=== PATIENT | female | born 1950 | race Caucasian/White ===

== ENCOUNTER 2016-09-26 22:51 | Emergency (ER) | payer MEDICAID ==
[2016-09-26 23:32] LABS: % BASOPHILS 0.8 % (0.0-2.0); % EOSINOPHILS 2.3 % (0.0-5.0); % LYMPHOCYTES 25.3 % (20.0-50.0); % MONOCYTES 7.7 % (2.0-10.0); % NEUTROPHILS 63.9 % (40.0-80.0); HEMOGLOBIN 12.2 gm/dL (11.7-16.1); MEAN CELL VOLUME 86.5 fl (81-100); MEAN CORPUSCULAR HEMOGLOBIN 29.4 pg (27.0-31.0); MEAN PLATELET VOLUME 8.7 fl; NEUTROPHILE ABSOLUTE 4.7 Th/cmm (1.8-8.0); PLATELET COUNT 226 Th/cmm (150-400); RED BLOOD COUNT 4.16 Mil/cmm (3.80-5.20); RED CELL DISTRIBUTION WIDTH 13.7 % (11.5-20.0); WHITE BLOOD COUNT 7.5 Th/cmm (4.8-10.8)
[2016-09-26] MEDS ORDERED: Sodium Chloride 0.45% 1,000 ML IV ONE (23:37)
[2016-09-26] MEDS ORDERED: HYDROmorphone 1 mg/mL 1mL Syr IVP STA (23:38)
[2016-09-26 23:46] LABS: INR 0.98 (0.5-1.4); PROTHROMBIN TIME (TEST) 10.2 SECONDS (9.5-11.5)
[2016-09-26 23:47] LABS: ALB/GLOB RATIO 1.4 (1.0-1.8); ALKALINE PHOSPHATASE 73 U/L (34-104); ANION GAP 10.3 (7.0-16.0); BILIRUBIN,TOTAL 0.3 mg/dL (0.3-1.0); BUN - UREA NITROGEN 23 mg/dL (7-25); BUN/CREATININE RATIO 32.9; CALCIUM SERUM 9.5 mg/dL (8.6-10.3); CARBON DIOXIDE 23.4 mEq/L (21.0-31.0); CHLORIDE 106 mEq/L (98-107); CHOLESTEROL 141 mg/dL (<200); CREATININE - SERUM 0.7 mg/dL (0.6-1.2); GLUCOSE 117 mg/dL (70-105); POTASSIUM SERUM 3.7 mEq/L (3.5-5.1); SGOT 19 U/L (13-39); SGPT/ALT 10 U/L (7-52); SODIUM SERUM 136 mEq/L (136-145); TRIGLYCERIDES 103 mg/dL (<150)
--- NOTE | 2016-09-26 23:50 | ED Physician Chart ---
Chief Complaint/HPI - Patient Information Date Seen:: 09/26/16 Time Seen:: 23:00 Chief Complaint:: ABDOMINAL PAIN History of Present Illness:: THIS IS A 65 YEAR OLD FEMALE WITH RECURRENT GI PROBLEMS AND PAIN. SHE HAS BEEN SEEN ABOUT 8 TIMES FOR THE SAME PROBLEM. EARLIER TODAY SHE SUDDENLY STARTED TO HAVE GENERALIZED ABDOMINAL PAIN WITHOUT VOMITING OR FEVER BUT HAS DIARRHEA. SHE HAS SYMPTOMS OF CROHN'S DISEASE BUT HAS NOT SEEN ANY BLOOD IN HER STOOLS. IN THE PAST SHE HAS HAD CT SCANS AND GI WORKUPS. SHE MICHELE DIABETES BUT HER MOTHER HAS IT. Allergies:: Allergies Allergy/AdvReac Type Severity Reaction Status Date / Time codeine Allergy Verified 10/07/15 08:23 Vitals:: Vital Signs - 8 hr 09/26/16 22:51 Temp 98.1 F HR 59 RR 18 BP 145/74 O2 Sat % 98 Historian:: Patient, Medical Records Review:: Nurse's Note Reviewed, Old Chart Reviewed Review of Systems - Review of Systems General/Constitutional: No fever, No chills, No weight loss, No weakness, No diaphoresis, No edema, No loss of appetite Skin: No skin lesions, No rash, No bruising Head: No headache, No light-headedness Eyes: No loss of vision, No pain, No diplopia ENT: No earache, No nasal drainage, No sore throat, No tinnitus Neck: No neck pain, No swelling, No thyromegaly, No stiffness, No mass noted Cardio Vascular: No chest pain, No palpitations, No PND, No orthopnea, No edema Pulmonary: No SOB, No cough, No sputum, No wheezing GI: No nausea, No vomiting, Diarrhea, Pain, No melena, No hematochezia, No constipation, No hematemesis G/U: No dysuria, No frequency, No hematuria Musculoskeletal: No bone or joint pain, No back pain, No muscle pain Endocrine: No polyuria, No polydipsia Psychiatric: No prior psych history, No depression, No anxiety, No suicidal ideation Hematopoietic: No bruising, No lymphadenopathy Allergic/Immuno: No urticaria, No angioedema Neurological: No syncope, No focal symptoms, No weakness, No paresthesia, No headache, No seizure, No dizziness, No confusion, No vertigo Past Medical History - Past Medical History Obtainable: Yes Past Medical History: Thyroid disorder, Other (CROHNS) Family History: Diabetes Melitus (MOTHER) Social History: Non Smoker, No Alcohol, No Drug Use Surgical History: None Psychiatricy History: None Medication: Reviewed Family Medical History - Family Member Mother History Unknown: Yes Ethnicity: Living Status: Hx Family Cancer: No Hx Family Coronary Artery Disease: No Hx Family Congestive Heart Failure: No Hx Family Hypertension: No Hx Family Stroke: No Hx Family Diabetes: Yes Hx Family Seizures: No Hx Family Dementia: No Hx Family AIDS: No Hx Family HIV: No Hx Family COPD: No Hx Family Hepatitis: No Hx Family Psychiatric Problems: No Hx Family Tuberculosis: No Father History Unknown: Yes Ethnicity: Living Status: Hx Family Cancer: Yes (STOMACH) Hx Family Coronary Artery Disease: No Hx Family Congestive Heart Failure: No Hx Family Hypertension: No Hx Family Stroke: No Hx Family Diabetes: No Hx Family Seizures: No Hx Family Dementia: No Hx Family AIDS: No Hx Family HIV: No Hx Family COPD: No Hx Family Hepatitis: No Hx Family Psychiatric Problems: No Hx Family Tuberculosis: No Physical Exam - Physical Examination General/Constitutional: Awake, Well-developed, well-nourished, Alert, No distress, GCS 15, Non-toxic appearing, Ambulatory Head: Atraumatic Eyes: Lids, conjuctiva normal, PERRL, EOMI Skin: Nl inspection, No rash, No skin lesions, No ecchymosis, Well hydrated, No lymphadenopathy ENMT: External ears, nose nl, Nasal exam nl, Lips, teeth, gums nl Neck: Nontender, Full ROM w/o pain, No JVD, No nuchal rigidity, No bruit, No mass, No stridor Respiratory: Nl effort/Exclusion, Clear to Auscultation, No Wheeze/Rhonchi/Rales Cardio Vascular: RRR, No murmur, gallop, rubs, NL S1 S2 GI: No organomegaly, No hernia, Normal BS's, Nondistended, No mass/bruits, No McBurney tenderness Other GI comments:: THERE IS GENERALIZE TENDERNESS OVER THE ENTIRE ABDOMEN WITH REBOUND : No CVA tenderness Extremities: No tenderness or effusion, Full ROM, normal strength in all extremities, No edema, Normal digits & nails Neuro/Psych: Alert/oriented, DTR's symmetric, Normal sensory exam, Normal motor strength, Judgement/insight normal, Mood normal, Normal gait, No focal deficits Misc: normal gait, Normal back, No paraspinal tenderness Labs/Radiology/EKG Results - Lab Results Results: Laboratory Tests 09/26/16 23:16 WBC 7.5 RBC 4.16 Hgb 12.2 Hct 36.0 D MCV 86.5 MCH 29.4 MCHC Differential 34.0 RDW 13.7 Plt Count 226 MPV 8.7 Neutrophils % 63.9 Lymphocytes % 25.3 Monocytes % 7.7 Eosinophils % 2.3 Basophils % 0.8 Assessment - Assessment General Assessment: THE PATIENT REFUSED FOR IMAGING TEST BUT NEEDS MED FOR PAIN AND HYDRATION. ED Septic Shock - . Is Septic Shock (SBP<90, OR Lactate>4 mmol\L) present?: No - <6hrs of presentation: Vital Signs: Vital Signs - 8 hr 09/26/16 22:51 Temp 98.1 F HR 59 RR 18 BP 145/74 O2 Sat % 98 Reassessment (Disposition) - Reassessment Reassessment Condition:: Improved - Diagnosis Diagnosis:: COLITIS - Aftercare/Follow up Instructions Aftercare/Follow-Up Instructions:: Counseled pt regarding lab results/diagnosis & need follow up, Refer to Discharge Instructions, Counseled pt & family regarding lab results/diagnosis & need follow up - Patient Disposition Discharge/Transfer:: Home Condition at Disposition:: Improved ED Discharge Plan - Patient Disposition Admit/Discharge/Transfer: PT DISCHARGED HOME Condition at Disposition: Improved Additional Instructions: CLEAR LIQUID DIET FOR 24 HOURS PLEASE TAKE MEDS AND DESCRIBED RETURN TO ER IF SYMPTOMS RETURN OR IF VOMITING STARTS.
[2016-09-26] MEDS ORDERED: HYDROmorphone 1 mg/mL 1mL Syr ONE (23:51)
== END 2016-09-27 00:45 | disposition home or self-care (01) ==
LOC: ER 22:51
DX: K52.9 Noninfective gastroenteritis and colitis, unspecified (principal); E07.9 Disorder of thyroid, unspecified; Z88.5 Allergy status to narcotic agent
CPT/HCPCS: 99284; 96374; 96375; 84484; 36415; 84443; 86592; 85025; 85610; 85730; 83036; 80053; 80061; 87040 ×2; J2405; J2930; J1170; Z7502

== ENCOUNTER 2016-10-30 01:52 | Inpatient (IN) | payer MEDICAID ==
--- NOTE | 2016-10-30 02:08 | ED Physician Chart ---
Chief Complaint/HPI - Patient Information Date Seen:: 10/30/16 Time Seen:: 14:00 Chief Complaint:: Abdominal Pain History of Present Illness:: onset x one day of intermittent, crampy abd. pain, N/V/D; no A/C, H/As, Neck Pain C/P, fever, chills, or urinary s/s Allergies:: Allergies Allergy/AdvReac Type Severity Reaction Status Date / Time codeine Allergy Verified 10/07/15 08:23 Historian:: Patient Review:: Nurse's Note Reviewed Review of Systems - Review of Systems General/Constitutional: No fever, No chills, No weight loss, No weakness, No diaphoresis, No edema, No loss of appetite Skin: No skin lesions, No rash, No bruising Head: No headache, No light-headedness Eyes: No loss of vision, No pain, No diplopia ENT: No earache, No nasal drainage, No sore throat, No tinnitus Neck: No neck pain, No swelling, No thyromegaly, No stiffness, No mass noted Cardio Vascular: No chest pain, No palpitations, No PND, No orthopnea, No edema Pulmonary: No SOB, No cough, No sputum, No wheezing GI: Nausea, Vomiting, Diarrhea, Pain, No melena, No hematochezia, No constipation, No hematemesis G/U: No dysuria, No frequency, No hematuria [employer]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, No abnormal vaginal bleed, No contraction Musculoskeletal: No bone or joint pain, No back pain, No muscle pain Endocrine: No polyuria, No polydipsia Psychiatric: No prior psych history, No depression, No anxiety, No suicidal ideation, No homicidal ideation, No auditory hallucination, No visual hallucination Hematopoietic: No bruising, No lymphadenopathy Allergic/Immuno: No urticaria, No angioedema Neurological: No syncope, No focal symptoms, No weakness, No paresthesia, No headache, No seizure, No dizziness, No confusion, No vertigo Past Medical History - Past Medical History Obtainable: Yes Past Medical History: Other (Crohn's Disease) Family History: HTN Social History: Non Smoker, No Alcohol, No Drug Use Surgical History: None Psychiatricy History: None Medication: Reviewed Family Medical History - Family Member Mother History Unknown: Yes Ethnicity: Living Status: Hx Family Cancer: No Hx Family Coronary Artery Disease: No Hx Family Congestive Heart Failure: No Hx Family Hypertension: No Hx Family Stroke: No Hx Family Diabetes: Yes Hx Family Seizures: No Hx Family Dementia: No Hx Family AIDS: No Hx Family HIV: No Hx Family COPD: No Hx Family Hepatitis: No Hx Family Psychiatric Problems: No Hx Family Tuberculosis: No Father History Unknown: Yes Ethnicity: Living Status: Hx Family Cancer: Yes (STOMACH) Hx Family Coronary Artery Disease: No Hx Family Congestive Heart Failure: No Hx Family Hypertension: No Hx Family Stroke: No Hx Family Diabetes: No Hx Family Seizures: No Hx Family Dementia: No Hx Family AIDS: No Hx Family HIV: No Hx Family COPD: No Hx Family Hepatitis: No Hx Family Psychiatric Problems: No Hx Family Tuberculosis: No Son Ethnicity: Living Status: Still Living Physical Exam - Physical Examination General/Constitutional: Awake, Well-developed, well-nourished, Alert, No distress, GCS 15, Non-toxic appearing, Ambulatory Head: Atraumatic Eyes: Lids, conjuctiva normal, PERRL, EOMI Skin: Nl inspection, No rash, No skin lesions, No ecchymosis, Well hydrated, No lymphadenopathy ENMT: External ears, nose nl, Nasal exam nl, Lips, teeth, gums nl Neck: Nontender, Full ROM w/o pain, No JVD, No nuchal rigidity, No bruit, No mass, No stridor Respiratory: Nl effort/Exclusion, Clear to Auscultation, No Wheeze/Rhonchi/Rales Cardio Vascular: RRR, No murmur, gallop, rubs, NL S1 S2 GI: No tenderness/rebounding/guarding, No organomegaly, No hernia, Normal BS's, Nondistended, No mass/bruits, No McBurney tenderness : No CVA tenderness Extremities: No tenderness or effusion, Full ROM, normal strength in all extremities, No edema, Normal digits & nails Neuro/Psych: Alert/oriented, DTR's symmetric, Normal sensory exam, Normal motor strength, Judgement/insight normal, Mood normal, Normal gait, No focal deficits Misc: normal gait, Normal back, No paraspinal tenderness Labs/Radiology/EKG Results - Lab Results Results: unremarkable - Radiology Results Results: NAD - EKG Interpretations Rate & Rhythm: NSR Comments:: non-specific st-t changes ED Septic Shock - . Is Septic Shock (SBP<90, OR Lactate>4 mmol\L) present?: No Reassessment (Disposition) - Reassessment Reassessment Condition:: Improved - Diagnosis Diagnosis:: Crohn's Disease; Vomiting/Diarrhea; AGE; Gastroenteritis; Abdominal Pain; Dehydration; Intractable Pain - Aftercare/Follow up Instructions Aftercare/Follow-Up Instructions:: Counseled pt regarding lab results/diagnosis & need follow up, Counseled pt & family regarding lab results/diagnosis & need follow up - Patient Disposition Discharge/Transfer:: Acute Care w/in this hosp Time Called:: 399 Time Responded:: 04:00 Admitted to:: Med/Surg Spoke to:: Dr. Penaloza Admitting Medical Physician:: Dr. Penaloza Condition at Disposition:: Stable, Improved
[2016-10-30] MEDS ORDERED: Morphine Sulfate 2 mg/mL 1mL Syr IVP ONE (02:09)
[2016-10-30] MEDS ORDERED: Sodium Chloride 0.9% 1,000 ML IV ONE (02:09)
[2016-10-30] MEDS ORDERED: Morphine Sulfate 2 mg/mL 1mL Syr ONE (02:14)
[2016-10-30 02:36] LABS: % BASOPHILS 1.1 % (0.0-2.0); % EOSINOPHILS 1.3 % (0.0-5.0); % LYMPHOCYTES 13.8 % (20.0-50.0); % MONOCYTES 4.5 % (2.0-10.0); % NEUTROPHILS 79.3 % (40.0-80.0); HEMATOCRIT 38.6 % (35.0-45.0); HEMOGLOBIN 13.2 gm/dL (11.7-16.1); MEAN CORPUSCULAR HEMOGLOBIN 28.8 pg (27.0-31.0); MEAN CORPUSCULAR HGB CONC 34.3 pg (28.0-36.0); MEAN PLATELET VOLUME 9.4 fl; NEUTROPHILE ABSOLUTE 8.9 Th/cmm (1.8-8.0); PLATELET COUNT 180 Th/cmm (150-400); RED CELL DISTRIBUTION WIDTH 14.7 % (11.5-20.0)
[2016-10-30 02:38] LABS: URINE BILIRUBIN NEGATIVE (NEGATIVE); URINE BLOOD NEGATIVE (NEGATIVE); URINE GLUCOSE (UA) NEGATIVE (NEGATIVE); URINE KETONE NEGATIVE (NEGATIVE); URINE PH 5.5 (4.6 - 8.0); URINE PROTEIN 30 mg/dL (NEGATIVE)
[2016-10-30 02:52] LABS: ALB/GLOB RATIO 1.5 (1.0-1.8); ALKALINE PHOSPHATASE 80 U/L (34-104); ANION GAP 11.4 (7.0-16.0); BILIRUBIN,TOTAL 0.4 mg/dL (0.3-1.0); BUN - UREA NITROGEN 19 mg/dL (7-25); BUN/CREATININE RATIO 23.8; CALCIUM SERUM 9.6 mg/dL (8.6-10.3); CARBON DIOXIDE 22.4 mEq/L (21.0-31.0); CHLORIDE 106 mEq/L (98-107); CHOLESTEROL 150 mg/dL (<200); CREATININE - SERUM 0.8 mg/dL (0.6-1.2); GLUCOSE 160 mg/dL (70-105); POTASSIUM SERUM 3.8 mEq/L (3.5-5.1); SGOT 21 U/L (13-39); SGPT/ALT 10 U/L (7-52); SODIUM SERUM 136 mEq/L (136-145); TRIGLYCERIDES 114 mg/dL (<150)
[2016-10-30 02:53] LABS: AMYLASE SERUM 44 U/L (29-103); LIPASE 40 U/L (11-82)
[2016-10-30 02:54] LABS: TROP I 0.01 ng/mL (0.01-0.05)
[2016-10-30 02:58] LABS: WHITE BLOOD COUNT 11.1 Th/cmm (4.8-10.8)
[2016-10-30 03:13] LABS: URINE COLOR YELLOW
[2016-10-30 03:14] LABS: URINE BACTERIA NONE SEEN /hpf (NONE SEEN); URINE EPITHELIAL CELLS NONE SEEN /lpf (FEW); URINE RBC NONE SEEN /hpf (0-5); URINE WBC NONE SEEN /hpf (0-5)
[2016-10-30 03:16] LABS: BNP 23.8 pg/mL (5.0-100.0)
[2016-10-30 03:40] LABS: INR 0.91 (0.5-1.4); PROTHROMBIN TIME (TEST) 9.5 SECONDS (9.5-11.5)
[2016-10-30] MEDS: Morphine Sulfate 2 mg/mL 1mL Syr IVP PRN ×2 (05:15→19:55)
[2016-10-30] MEDS: D5-0.45NS 1,000 ML IV SCH ×2 (05:18→17:23)
[2016-10-30 05:32] VITALS: BP 131/66
--- NOTE | 2016-10-30 08:10 | Diagnostic Imaging Report ---
CT scan abdomen and pelvis without intravenous contrast HISTORY: Pain Total DLP equals 418 CTDI equals 8.3 Axial sections were obtained from the xiphoid process down to the pubic symphysis. The exam of the liver demonstrates several well-circumscribed hypodense lesions. Density measurements consistent with cysts. The largest is situated within the left lobe and measures approximately 2.7 cm. The spleen appears normal. No abnormalities are seen in the region of the pancreas. No focal renal lesions no calculi. No hydronephrosis. There are multiple loops of dilated small bowel. No colonic dilatation. The findings suggest changes of a distal small bowel obstruction. Clinical relation is needed. The appendix is not clearly visualized. The exam of the pelvis demonstrates preservation of normal fat planes. No abnormal soft tissue masses or abnormal fluid collections. There is spondylolisthesis of L5 on S1 with bilateral spondylolysis. IMPRESSION: 1. Dilated loops of small bowel suggesting a distal small bowel obstruction. Clinical correlation is needed. 2. Findings consistent with multiple hepatic cysts 3. Spondylolisthesis L5 on S1 associated with bilateral spondylolysis.
--- NOTE | 2016-10-30 11:11 | History & Physical ---
ADMIT DATE: 10/30/2016 PATIENT IDENTIFICATION: A 65-year-old female. CHIEF COMPLAINT: Abdominal pain. HISTORY SOURCE: Reviewing the chart, talking to the patient. HISTORY OF PRESENT ILLNESS: A 65-year-old [place] female, speaks Welsh only, has been going in and out of the Emergency Room for abdominal pain. She states that her daughter is and has a Crohn's colitis. She did have a colonoscopy done by her marine drafter and noted to have diverticulosis. No evidence of colitis as per patient's account. She does take Synthroid for her hypothyroidism. The patient states that yesterday around 3:00, she ate chicken and tortilla and after that 5:00, she started her pain, which she describes initially upper part and subsequently to the lower part of the abdomen. The pain was associated with nausea, vomiting and diarrhea. The patient brought herself to the Emergency Room. The patient was seen by Emergency Room MD. I was asked by the charge nurse to admit the patient, while Emergency Room doctor was unable to talk to me. The patient did receive some IV morphine and Toradol. The patient was admitted by me since the patient had multiple visits in the Emergency Room. The patient is currently pain free. PAST MEDICAL HISTORY: Remarkable for: 1. Diverticulosis. 2. Hypothyroidism. 3. DJD. MEDICATIONS AT HOME: She is taking Lasix, potassium along with Synthroid and multivitamin. ALLERGIES: THE PATIENT IS ALLERGIC TO CODEINE, but she takes morphine without any problem. SOCIAL HISTORY: She lives in [place]. No smoking, alcohol or drug use. FAMILY MEDICAL HISTORY: Remarkable for hypertension. REVIEW OF SYSTEMS: The patient currently denies any headache, blurred vision, double vision, dysphagia, odynophagia, runny nose, stuffy nose, fever, chills, cough, chest pain, shortness of breath, palpitation, dizziness, nausea, vomiting, diarrhea, dysuria, hematuria, hematochezia, or melena. No history of any seizure or syncopal episode. PHYSICAL EXAMINATION: GENERAL: The patient is alert, awake, oriented, lying in the bed without any acute distress. VITAL SIGNS: Temperature 97.5, pulse 56, respiratory rate 18, blood pressure 120/62. SKIN: Warm to touch. HEENT: Normocephalic, atraumatic. Extraocular muscles are intact. Tongue was pink and coated. NECK: Supple, no JVD, no hepatojugular reflex. No lymphadenopathy, thyromegaly or carotid bruit. HEART: Both heart sounds are regular. No S3, no S4, no murmur. CHEST: Lung equal in expansion, no wheezing, no crackles. ABDOMEN: Soft. Left lower quadrant tenderness noted. Bowel sounds are present. No palpable mass. EXTREMITIES: No edema, no cyanosis or clubbing. No calf tenderness noted. NEUROLOGIC: Nonfocal. AVAILABLE DIAGNOSTIC DATA: Performed in the Emergency Room has been reviewed which is remarkable for white count of 11.5, random blood sugar 160. CT scan of the abdomen and pelvis remarkable for dilated loop of small bowel, suggesting distal small-bowel obstruction, clinical correlation recommended also noted. L5-S1 bilateral spondylosis noted. CLINICAL IMPRESSION: 1. Acute onset of abdominal pain associated with nausea, vomiting, diarrhea. The patient's family member, daughter had similar symptoms, suspect the patient might have acute gastroenteritis. 2. Abnormal CT scan of the abdomen and pelvis, questionable small-bowel obstruction. The patient has bowel sounds present. Clinically does not look small-bowel obstruction. 3. The patient had diverticulosis, had left lower quadrant tenderness, possibilities of diverticulitis is there in the presence of diverticulosis. 4. Hypothyroidism. 5. Possibilities of gastritis as well, considering the patient has been taking potassium supplement for a while. 6. Degenerative joint disease. PLAN: 1. Admit this patient to Med/Surg floor. 2. NPO. 3. IV fluid. 4. IV antibiotic. 5. Symptoms management. 6. Pepcid. 7. Appropriate home medicine reconciliation. 8. GI consult. 9. Follow lab. 10. Follow quantitative consultant's recommendations. 11. Care plan reviewed and discussed with staff. JOB# [id number]
--- NOTE | 2016-10-30 22:34 | Consultation ---
DATE OF CONSULTATION: 10/30/2016 CONSULTING PHYSICIAN: Dr. Penaloza. REASON FOR CONSULTATION: Small-bowel obstruction, abdominal pain. HISTORY OF PRESENT ILLNESS: The patient is a 65-year-old female with past medical history significant for repeated small-bowel obstruction, who is presenting now with 1 day of bloating, abdominal pain and nausea and vomiting. The patient reports that she has been admitted to several hospitals at least 14 times over the past two years with similar symptoms and been told that she has bowel obstruction. She is adamant that she has never been told she has Crohn's disease, although she reports she has been told that she might be prone to Crohn's disease as she has a daughter with Crohn's disease. She notes that she has seen specialist in Gastroenterology previously as an outpatient and a colonoscopy has been performed in the past year, but reports that she was told things looked normal. She was on some unknown type of medication that she says was for her bowels, but this was stopped after several months back by her specialist. She does not know what the name of this was at this time. The patient reports that her symptoms of bloating, nausea, and vomiting and abdominal pain are elicited by eating particularly fibrous foods such as rice or corn or bread. She denies seeing any blood in her stool and notes that she sometimes often will have some diarrhea. She denies any blood in her emesis. She denies any skin or eye changes or changes in concentration or tremor. PAST MEDICAL HISTORY: Noncontributory, although the patient reports being told by a specialist she is prone to having Crohn's disease. PAST SURGICAL HISTORY: The patient denies any previous surgeries. FAMILY HISTORY: The patient's daughter has Crohn's disease. No colon or stomach cancers in the family. SOCIAL HISTORY: The patient denies any tobacco products or alcohol use. ALLERGIES: ALLERGIC TO CODEINE. REVIEW OF SYSTEMS: A 12-point review of systems was performed and is negative other than the pertinent positives are mentioned in the history of present illness. HOME MEDICATIONS: The patient reports only taking vitamin supplements. CURRENT MEDICATIONS: Include Synthroid, morphine as needed, Pepcid, Zofran and Zosyn. PHYSICAL EXAMINATION: VITAL SIGNS: Blood pressure 131/66, pulse of 56, temperature 97.5, respiratory rate 19, satting 99% saturation on room air. GENERAL: The patient is lying flat in bed, alert and oriented x 3, in some moderate distress. HEENT: There is no scleral icterus. Pupils are equal and reactive to light. Extraocular muscles are intact. Moist mucous membranes. NECK: No JVD, no thyromegaly, no lymphadenopathy. Supple. CHEST: Clear to auscultation bilaterally. No wheezes. CARDIOVASCULAR: S1, S2 are present, regular rate and rhythm. ABDOMEN: Soft, although tender to palpation in all quadrants. No guarding or rebound. No distention at the moment. No fluid wave. EXTREMITIES: No edema. Positive pulses. Full range of motion. NEUROLOGIC: Nonfocal. SKIN: No jaundice, no rashes. LABORATORY DATA: White blood cell count 11.1, hemoglobin 13.2, platelet count 180. INR , BUN 19, creatinine 0.8, total bilirubin 0.4, AST 21, ALT 10, alkaline phosphatase 80. Troponin negative. Albumin 4.3. IMAGING: The patient had non-con abdomen and pelvis. Liver demonstrates several well circumscribed hypodense lesions with density consistent with cysts, largest of these is 2.7 cm. Spleen appears normal. The pancreas is normal. Multiple dilated loops of small bowel. No colonic dilation, findings suggest distal small-bowel obstruction. Appendix not clearly visualized. IMPRESSION: This is a 65-year-old female with apparently no past medical history, who is presenting with repeated small bowel obstructions; 1. Repeated small-bowel obstruction. 2. Nausea and vomiting. 3. Abdominal pain. 4. Family history of Crohn's disease. DISCUSSION: This presentation and this history are highly suspicious for inflammatory bowel disease, most likely Crohn's disease given the distal small bowel involvement. The patient does report having a colonoscopy, but this cannot be retrieved and the patient does not remember where this was, thus we will attempt to see if her obstruction has resolved enough to the point where we can do a colonoscopy here and examine her terminal ileum for confirmation of Crohn's disease. I will also get a CRP level and ESR level as well as labs necessary for anti-TNF agents if this becomes necessary. I suggest a surgical consultation given that the patient has had several bowel obstructions at this point and I would think that her terminal ileum is likely fibrotic and may not respond to immunotherapy. PLAN: 1. We will attempt to give the patient some clears today. If the patient is able to tolerate this. We will plan for colonoscopy tomorrow with bowel prep this evening in order to confirm the presence of Crohn's. 2. If Crohn's is confirmed by labs and colonoscopy, she would benefit from starting immunotherapy, likely steroids. 3. I would suggest surgical consultation as stated above. 4. Follow up ESR and CRP levels. I will continue to follow. Thank you for allowing me to participate in the care of this patient. Please call with any further questions. [facility]# [id number]
[2016-10-31] MEDS: D5-0.45NS 1,000 ML IV SCH ×3 (05:14→21:41)
[2016-10-31] MEDS: Levothyroxine 0.1 Mg Tab PO SCH (06:42)
[2016-10-31 07:08] LABS: % BASOPHILS 1.2 % (0.0-2.0); % EOSINOPHILS 5.2 % (0.0-5.0); % LYMPHOCYTES 38.7 % (20.0-50.0); % NEUTROPHILS 45.9 % (40.0-80.0); HEMOGLOBIN 11.9 gm/dL (11.7-16.1); MEAN CELL VOLUME 84.4 fl (81-100); MEAN CORPUSCULAR HEMOGLOBIN 29.5 pg (27.0-31.0); MEAN CORPUSCULAR HGB CONC 34.9 pg (28.0-36.0); MEAN PLATELET VOLUME 9.4 fl; RED BLOOD COUNT 4.02 Mil/cmm (3.80-5.20); RED CELL DISTRIBUTION WIDTH 15.3 % (11.5-20.0)
[2016-10-31 07:12] LABS: PLATELET COUNT 143 Th/cmm (150-400); WHITE BLOOD COUNT 4.4 Th/cmm (4.8-10.8)
[2016-10-31 07:27] LABS: INR 0.96 (0.5-1.4)
[2016-10-31 07:32] LABS: ALB/GLOB RATIO 1.5 (1.0-1.8); ALKALINE PHOSPHATASE 56 U/L (34-104); ANION GAP 5.5 (7.0-16.0); BILIRUBIN,TOTAL 0.6 mg/dL (0.3-1.0); BUN - UREA NITROGEN 8 mg/dL (7-25); BUN/CREATININE RATIO 13.3; CALCIUM SERUM 8.1 mg/dL (8.6-10.3); CARBON DIOXIDE 25.1 mEq/L (21.0-31.0); CHLORIDE 112 mEq/L (98-107); CREATININE - SERUM 0.6 mg/dL (0.6-1.2); GLUCOSE 93 mg/dL (70-105); POTASSIUM SERUM 3.6 mEq/L (3.5-5.1); SGOT 18 U/L (13-39); SGPT/ALT 11 U/L (7-52); SODIUM SERUM 139 mEq/L (136-145)
--- NOTE | 2016-10-31 08:04 | Diagnostic Imaging Report ---
CHEST X-RAY: AP view INDICATION: pain COMPARISON: None FINDINGS: Chronic lung changes are seen with no focal consolidation or effusions. Heart size is normal. Degenerative changes of the spine are noted. IMPRESSION: Chronic lung changes with no focal consolidation identified.
[2016-10-31 11:11] LABS: FOLIC ACID >20.0 ng/mL (>3.0)
[2016-10-31 13:12] LABS: HEP B CORE IGM Negative (Negative); HEP C ANTIBODY <0.1 s/co ratio (0.0-0.9)
--- NOTE | 2016-10-31 14:45 | GI Progress Note ---
Subjective - Review of Systems Service Date: 10/31/16 Subjective: Colonoscopy today shows normal colon and TI, biopsies taken. SBO clinically resolved. Objective - Results Result Diagrams: 10/31/16 06:40 10/31/16 06:40 Recent Labs: Laboratory Last Values WBC 4.4 Th/cmm (4.8-10.8) L D 10/31/16 06:40 RBC 4.02 Mil/cmm (3.80-5.20) 10/31/16 06:40 Hgb 11.9 gm/dL (11.7-16.1) 10/31/16 06:40 Hct 34.0 % (35.0-45.0) L D 10/31/16 06:40 MCV 84.4 fl (81-100) 10/31/16 06:40 MCH 29.5 pg (27.0-31.0) 10/31/16 06:40 MCHC Differential 34.9 pg (28.0-36.0) 10/31/16 06:40 RDW 15.3 % (11.5-20.0) 10/31/16 06:40 Plt Count 143 Th/cmm (150-400) L D 10/31/16 06:40 MPV 9.4 fl 10/31/16 06:40 Neutrophils % 45.9 % (40.0-80.0) 10/31/16 06:40 Lymphocytes % 38.7 % (20.0-50.0) 10/31/16 06:40 Monocytes % 9.0 % (2.0-10.0) 10/31/16 06:40 Eosinophils % 5.2 % (0.0-5.0) H 10/31/16 06:40 Basophils % 1.2 % (0.0-2.0) 10/31/16 06:40 ESR 22 mm/hr (0-30) 10/30/16 02:18 PT 10.0 SECONDS (9.5-11.5) 10/31/16 06:40 INR 0.96 (0.5-1.4) 10/31/16 06:40 Sodium 139 mEq/L (136-145) 10/31/16 06:40 Potassium 3.6 mEq/L (3.5-5.1) 10/31/16 06:40 Chloride 112 mEq/L (98-107) H 10/31/16 06:40 Carbon Dioxide 25.1 mEq/L (21.0-31.0) 10/31/16 06:40 Anion Gap 5.5 (7.0-16.0) L 10/31/16 06:40 BUN 8 mg/dL (7-25) 10/31/16 06:40 Creatinine 0.6 mg/dL (0.6-1.2) 10/31/16 06:40 Est GFR ( Amer) > 60.0 ml/min (>90) 10/31/16 06:40 Est GFR (Non-Af Amer) > 60.0 ml/min 10/31/16 06:40 BUN/Creatinine Ratio 13.3 10/31/16 06:40 Glucose 93 mg/dL (70-105) 10/31/16 06:40 Calcium 8.1 mg/dL (8.6-10.3) L 10/31/16 06:40 Iron 108 ug/dL (27-139) 10/30/16 20:10 TIBC 263 ug/dL (250-450) 10/30/16 20:10 Iron Saturation 41 % (15-55) 10/30/16 20:10 Unsaturated IBC 155 ug/dL (118-369) 10/30/16 20:10 Total Bilirubin 0.6 mg/dL (0.3-1.0) 10/31/16 06:40 AST 18 U/L (13-39) 10/31/16 06:40 ALT 11 U/L (7-52) 10/31/16 06:40 Alkaline Phosphatase 56 U/L (34-104) 10/31/16 06:40 Creatine Kinase 59 U/L (30-223) 10/30/16 02:18 Troponin I 0.01 ng/mL (0.01-0.05) 10/30/16 02:18 C-Reactive Protein < 0.2 mg/dL (0.0-0.9) 10/30/16 02:18 B-Natriuretic Peptide 23.8 pg/mL (5.0-100.0) 10/30/16 02:18 Total Protein 5.9 gm/dL (6.0-8.3) L 10/31/16 06:40 Albumin 3.5 gm/dL (3.7-5.3) L 10/31/16 06:40 Globulin 2.4 gm/dL 10/31/16 06:40 Albumin/Globulin Ratio 1.5 (1.0-1.8) 10/31/16 06:40 Triglycerides 114 mg/dL (<150) 10/30/16 02:18 Cholesterol 150 mg/dL (<200) 10/30/16 02:18 LDL Cholesterol Direct 93 mg/dL (75-193) 10/30/16 02:18 HDL Cholesterol 43 mg/dL (23-92) 10/30/16 02:18 Amylase 44 U/L (29-103) 10/30/16 02:18 Lipase 40 U/L (11-82) 10/30/16 02:18 Vitamin B12 199 pg/mL (211-946) L 10/30/16 20:10 Vitamin D 25-Hydroxy 35.9 ng/mL (30.0-100.0) 10/30/16 20:10 Folic Acid >20.0 ng/mL (>3.0) 10/30/16 20:10 TSH 1.30 uIU/ml (0.34-5.60) 10/30/16 02:18 Urine Source CLEAN C 10/30/16 02:00 Urine Color YELLOW 10/30/16 02:00 Urine Clarity CLEAR (CLEAR) 10/30/16 02:00 Urine pH 5.5 (4.6 - 8.0) 10/30/16 02:00 Ur Specific [place] >= 1.030 (1.005-1.030) 10/30/16 02:00 Urine Protein 30 mg/dL (NEGATIVE) H 10/30/16 02:00 Urine Glucose (UA) NEGATIVE mg/dL (NEGATIVE) 10/30/16 02:00 Urine Ketones NEGATIVE mg/dL (NEGATIVE) 10/30/16 02:00 Urine Blood NEGATIVE (NEGATIVE) 10/30/16 02:00 Urine Nitrate NEGATIVE (NEGATIVE) 10/30/16 02:00 Urine Bilirubin NEGATIVE (NEGATIVE) 10/30/16 02:00 Urine Urobilinogen 1.0 E.U./dL (0.2 - 1.0) 10/30/16 02:00 Ur Leukocyte Esterase NEGATIVE (NEGATIVE) 10/30/16 02:00 Urine RBC NONE SEEN /hpf (0-5) 10/30/16 02:00 Urine WBC NONE SEEN /hpf (0-5) 10/30/16 02:00 Ur Epithelial Cells NONE SEEN /lpf (FEW) 10/30/16 02:00 Urine Bacteria NONE SEEN /hpf (NONE SEEN) 10/30/16 02:00 Hepatitis A IgM Ab Negative (Negative) 10/30/16 20:10 Hep Bs Antigen Negative (Negative) 10/30/16 20:10 Hep B Core IgM Ab Negative (Negative) 10/30/16 20:10 Hepatitis C Antibody <0.1 s/co ratio (0.0-0.9) 10/30/16 20:10 - Physical Exam Vitals and I&O: Vital Signs Temp 97.6 F 10/31/16 11:00 Pulse 50 10/31/16 11:00 Resp 18 10/31/16 11:00 BP 124/61 10/31/16 11:00 Pulse Ox 99 10/31/16 11:00 Intake & Output 10/30/16 10/31/16 10/31/16 18:59 06:59 18:59 Intake Total 9946.058 1651.333 Balance 2789.603 1873.333 Weight (lbs) 61.235 kg Intake: Intake, IV Amount 6425.875 8399.333 D5-0.45NS 1,000 ml @ 100 1126.667 873.333 mls/hr IV .Q10H [facility] Rx#: [id number] Piperacillin Sodium/ 100 200 Tazobact 4.5 gm In Sodium Chloride 0.9% 100 ml @ 100 mls/hr IV Q8HR [facility] Rx #:[id number] Oral 4200 Other: # Voids 3 # Bowel Movements 7 Stool Characteristics Liquid Liquid Active Medications: Current Medications Famotidine (Pepcid) 20 mg IVP Q12H [facility] Stop: 12/29/16 09:29 Last Admin: 10/31/16 08:59 Dose: 20 mg Dextrose/Sodium Chloride (D5-0.45ns) 1,000 mls @ 100 mls/hr IV .Q10H [facility] Stop: 12/29/16 04:35 Last Admin: 10/31/16 05:14 Dose: 100 mls/hr Piperacillin Sod/Tazobactam (Sod 4.5 gm/ Sodium Chloride) 100 mls @ 100 mls/hr IV Q8HR [facility] Stop: 12/29/16 12:59 Last Infusion: 10/31/16 06:15 Dose: Infused Levothyroxine Sodium (Synthroid) 0.1 mg PO QDAC [facility] Stop: 12/30/16 07:29 Last Admin: 10/31/16 06:42 Dose: 0.1 mg Morphine Sulfate (Morphine) 2 mg IVP Q6H PRN PRN Reason: Pain (Severe) Stop: 12/29/16 04:44 Last Admin: 10/30/16 19:55 Dose: 2 mg Abdomen: Soft, Other (non tender, non distended, no rebound, no guard) Assessment/Plan - Problem List Patient Problems: All Active Problems Abdominal pain (Active) R10.9 Abdominal discomfort, generalized (Acute) R10.84 Sudden onset of severe abdominal pain (Acute) R10.9 - Assessment Assessment: # Recurrent SBO # Nausea/vomiting # Abd pain Given the family history of Crohns, and recurrent SBOs, IBD was high on the differential for this pt's recurrent SBOs. However, colonoscopy today shows normal colon and normal terminal ileum. Thus, this is not Crohns disease. Further, CRP and ESR negative as well. At this point, she may be suffering recurrent SBO related to adhesions or other anatomic pathology. Surgery consult is recommended to discuss resection of the offending area. Plan: - Surgery consultation given recurrent distal SBO, non IBD - clears diet, and can advance as tolerated Thank you for allowing me to participate in the care of this patient.
[2016-10-31] MEDS: Morphine Sulfate 2 mg/mL 1mL Syr IVP PRN ×2 (15:06→20:19)
--- NOTE | 2016-10-31 19:12 | Operative Report ---
DATE OF SURGERY: 10/31/2016 PROCEDURE PERFORMED: Colonoscopy with biopsy. ENDOSCOPIST: Grzegorz Pabon M.D. PREOPERATIVE DIAGNOSIS: Small-bowel obstruction. POSTOPERATIVE DIAGNOSIS: Small-bowel obstruction. INDICATION: This is a 65-year-old female, who has been admitted to the hospital several times over the past two years with small-bowel obstruction, thought to be in the distal ileum area. The patient has a daughter with Crohn's disease and there is suspicion that the patient may actually have Crohn's disease herself. She reports having a colonoscopy prior, but does not know the results and does not know if her ileum was examined, thus she is here for colonoscopy today to examine for any evidence of Crohn's. CONSENT: Informed consent was obtained from the patient. The patient was explained the risks and benefits of the procedure including but not limited to infection, bleeding, perforation, need for surgery, cardiopulmonary complications, missed pathology and . The patient indicated her understanding of these risks and wanted to proceed with the procedure and signed the consent form. ANESTHESIA: General anesthesia was used under the care of an anesthesiologist. PROCEDURE IN DETAIL: After the administration of general anesthesia, the patient was placed in the left lateral decubitus position. A well-lubricated scope was inserted into the rectum after a rectal exam was performed, which was normal. The scope was then advanced under direct visual guidance to the level of the cecum, the scope was also introduced into the terminal ileum and the mucosa was carefully examined. The scope was then slowly withdrawn, making sure to examine the entire colonic mucosal surface and upon exiting the anal canal the scope was retrieved. The patient tolerated this procedure well with no obvious signs of complications at the end of the procedure. FINDINGS: The Holly bowel prep score for this colonoscopy had right colon 3, mid colon 3, and left colon 3. The terminal ileum was able to be intubated and appeared endoscopically normal. The villi here appeared normal and healthy and there were no ulcerations, no erosions, no erythema about 20-25 cm of the terminal ileum was examined at the limit of the scope. Several biopsies were taken throughout this area. The colon also appeared normal without any evidence of erythema, granulation, ulceration, or mass. There were no internal hemorrhoids. No diverticulosis. Overall, normal exam. IMPRESSION AND RECOMMENDATIONS: There was no terminal ileum erythema or inflammation noticed on this exam. Thus, I do not suspect Crohn's disease at this time. The patient's small bowel obstructions may be due to adhesions or some other pathology, but does not appear to be from an inflammatory bowel disease given the endoscopic appearance of today's exam, I will continue to follow. Thank you for allowing me to participate in the care of this patient. Please call with any further questions. JOB# [id number]
[2016-11-01] MEDS: D5-0.45NS 1,000 ML IV SCH ×2 (06:09→15:35)
[2016-11-01] MEDS: Levothyroxine 0.1 Mg Tab PO SCH (06:36)
[2016-11-01] MEDS ORDERED: Diatrizoate Meglumine/Diatri 30 mL Sol PO ONE (10:20)
[2016-11-01] MEDS: Morphine Sulfate 2 mg/mL 1mL Syr IVP PRN ×2 (11:38→18:19)
[2016-11-01] MEDS ORDERED: Hydrocodone/APAP 5mg/325mg Tab PO PRN (13:56)
--- NOTE | 2016-11-01 18:14 | General Progress Note ---
Subjective - Review of Systems Subjective: Patient is seen and examined. Status post colonoscopy findings discussed with patient's family no clinical evidence of inflammatory bowel disease. Small bowel series is ordered which reported normal. Patient is still having intermittent abdominal pain. Patient's denies any fever or chills, cough, headache, diarrhea, seizure, syncope. Objective - Results Result Diagrams: 10/31/16 06:40 10/31/16 06:40 Recent Labs: Laboratory Last Values WBC 4.4 Th/cmm (4.8-10.8) L D 10/31/16 06:40 RBC 4.02 Mil/cmm (3.80-5.20) 10/31/16 06:40 Hgb 11.9 gm/dL (11.7-16.1) 10/31/16 06:40 Hct 34.0 % (35.0-45.0) L D 10/31/16 06:40 MCV 84.4 fl (81-100) 10/31/16 06:40 MCH 29.5 pg (27.0-31.0) 10/31/16 06:40 MCHC Differential 34.9 pg (28.0-36.0) 10/31/16 06:40 RDW 15.3 % (11.5-20.0) 10/31/16 06:40 Plt Count 143 Th/cmm (150-400) L D 10/31/16 06:40 MPV 9.4 fl 10/31/16 06:40 Neutrophils % 45.9 % (40.0-80.0) 10/31/16 06:40 Lymphocytes % 38.7 % (20.0-50.0) 10/31/16 06:40 Monocytes % 9.0 % (2.0-10.0) 10/31/16 06:40 Eosinophils % 5.2 % (0.0-5.0) H 10/31/16 06:40 Basophils % 1.2 % (0.0-2.0) 10/31/16 06:40 ESR 22 mm/hr (0-30) 10/30/16 02:18 PT 10.0 SECONDS (9.5-11.5) 10/31/16 06:40 INR 0.96 (0.5-1.4) 10/31/16 06:40 Sodium 139 mEq/L (136-145) 10/31/16 06:40 Potassium 3.6 mEq/L (3.5-5.1) 10/31/16 06:40 Chloride 112 mEq/L (98-107) H 10/31/16 06:40 Carbon Dioxide 25.1 mEq/L (21.0-31.0) 10/31/16 06:40 Anion Gap 5.5 (7.0-16.0) L 10/31/16 06:40 BUN 8 mg/dL (7-25) 10/31/16 06:40 Creatinine 0.6 mg/dL (0.6-1.2) 10/31/16 06:40 Est GFR ( Amer) > 60.0 ml/min (>90) 10/31/16 06:40 Est GFR (Non-Af Amer) > 60.0 ml/min 10/31/16 06:40 BUN/Creatinine Ratio 13.3 10/31/16 06:40 Glucose 93 mg/dL (70-105) 10/31/16 06:40 Calcium 8.1 mg/dL (8.6-10.3) L 10/31/16 06:40 Iron 108 ug/dL (27-139) 10/30/16 20:10 TIBC 263 ug/dL (250-450) 10/30/16 20:10 Iron Saturation 41 % (15-55) 10/30/16 20:10 Unsaturated IBC 155 ug/dL (118-369) 10/30/16 20:10 Total Bilirubin 0.6 mg/dL (0.3-1.0) 10/31/16 06:40 AST 18 U/L (13-39) 10/31/16 06:40 ALT 11 U/L (7-52) 10/31/16 06:40 Alkaline Phosphatase 56 U/L (34-104) 10/31/16 06:40 Creatine Kinase 59 U/L (30-223) 10/30/16 02:18 Troponin I 0.01 ng/mL (0.01-0.05) 10/30/16 02:18 C-Reactive Protein < 0.2 mg/dL (0.0-0.9) 10/30/16 02:18 B-Natriuretic Peptide 23.8 pg/mL (5.0-100.0) 10/30/16 02:18 Total Protein 5.9 gm/dL (6.0-8.3) L 10/31/16 06:40 Albumin 3.5 gm/dL (3.7-5.3) L 10/31/16 06:40 Globulin 2.4 gm/dL 10/31/16 06:40 Albumin/Globulin Ratio 1.5 (1.0-1.8) 10/31/16 06:40 Triglycerides 114 mg/dL (<150) 10/30/16 02:18 Cholesterol 150 mg/dL (<200) 10/30/16 02:18 LDL Cholesterol Direct 93 mg/dL (75-193) 10/30/16 02:18 HDL Cholesterol 43 mg/dL (23-92) 10/30/16 02:18 Amylase 44 U/L (29-103) 10/30/16 02:18 Lipase 40 U/L (11-82) 10/30/16 02:18 Vitamin B12 199 pg/mL (211-946) L 10/30/16 20:10 Vitamin D 25-Hydroxy 35.9 ng/mL (30.0-100.0) 10/30/16 20:10 Folic Acid >20.0 ng/mL (>3.0) 10/30/16 20:10 TSH 1.30 uIU/ml (0.34-5.60) 10/30/16 02:18 Urine Source CLEAN C 10/30/16 02:00 Urine Color YELLOW 10/30/16 02:00 Urine Clarity CLEAR (CLEAR) 10/30/16 02:00 Urine pH 5.5 (4.6 - 8.0) 10/30/16 02:00 Ur Specific [place] >= 1.030 (1.005-1.030) 10/30/16 02:00 Urine Protein 30 mg/dL (NEGATIVE) H 10/30/16 02:00 Urine Glucose (UA) NEGATIVE mg/dL (NEGATIVE) 10/30/16 02:00 Urine Ketones NEGATIVE mg/dL (NEGATIVE) 10/30/16 02:00 Urine Blood NEGATIVE (NEGATIVE) 10/30/16 02:00 Urine Nitrate NEGATIVE (NEGATIVE) 10/30/16 02:00 Urine Bilirubin NEGATIVE (NEGATIVE) 10/30/16 02:00 Urine Urobilinogen 1.0 E.U./dL (0.2 - 1.0) 10/30/16 02:00 Ur Leukocyte Esterase NEGATIVE (NEGATIVE) 10/30/16 02:00 Urine RBC NONE SEEN /hpf (0-5) 10/30/16 02:00 Urine WBC NONE SEEN /hpf (0-5) 10/30/16 02:00 Ur Epithelial Cells NONE SEEN /lpf (FEW) 10/30/16 02:00 Urine Bacteria NONE SEEN /hpf (NONE SEEN) 10/30/16 02:00 Hepatitis A IgM Ab Negative (Negative) 10/30/16 20:10 Hep Bs Antigen Negative (Negative) 10/30/16 20:10 Hep B Core IgM Ab Negative (Negative) 10/30/16 20:10 Hepatitis C Antibody <0.1 s/co ratio (0.0-0.9) 10/30/16 20:10 TB (QFT) Gold In Tube Positive (Negative) H 10/30/16 20:10 TB Test (QFT) Mitogen 7.30 IU/mL 10/30/16 20:10 TB Test (QFT) Antigen 2.89 IU/mL 10/30/16 20:10 TB Test Antigen - Nil 2.67 IU/mL 10/30/16 20:10 TB Test TB - Nil 0.22 IU/mL 10/30/16 20:10 TB Test (QFT) Interp (()) 10/30/16 20:10 - Physical Exam Vitals and I&O: Vital Signs Temp 97.3 F 11/01/16 16:00 Pulse 54 11/01/16 16:00 Resp 18 11/01/16 16:00 BP 127/65 11/01/16 16:00 Pulse Ox 98 11/01/16 12:00 Intake & Output 10/31/16 11/01/16 11/01/16 18:59 06:59 18:59 Intake Total 1436.258 430 6430.333 Balance 1436.268 315 6114.333 Weight (lbs) 60.328 kg 60.328 kg Intake: Intake, IV Amount 1436.461 727 6316.333 D5-0.45NS 1,000 ml @ 100 1336.667 650 943.333 mls/hr IV .Q10H [facility] Rx#: [id number] Piperacillin Sodium/ 100 100 100 Tazobact 4.5 gm In Sodium Chloride 0.9% 100 ml @ 100 mls/hr IV Q8HR [facility] Rx #:[id number] Oral 200 600 Other: # Voids 2 5 # Bowel Movements 0 1 Stool Characteristics Liquid Active Medications: Current Medications Acetaminophen/Hydrocodone Bitart (Mina 5mg/325mg) 1 tab PO Q6H PRN PRN Reason: Abdominal Pain Stop: 12/31/16 13:55 Last Admin: 11/01/16 14:08 Dose: 1 tab Famotidine (Pepcid) 20 mg IVP Q12H [facility] Stop: 12/29/16 09:29 Last Admin: 11/01/16 09:17 Dose: 20 mg Dextrose/Sodium Chloride (D5-0.45ns) 1,000 mls @ 100 mls/hr IV .Q10H [facility] Stop: 12/29/16 04:35 Last Admin: 11/01/16 15:35 Dose: 100 mls/hr Piperacillin Sod/Tazobactam (Sod 4.5 gm/ Sodium Chloride) 100 mls @ 100 mls/hr IV Q8HR [facility] Stop: 12/29/16 12:59 Last Admin: 11/01/16 13:08 Dose: 100 mls/hr Levothyroxine Sodium (Synthroid) 0.1 mg PO QDAC [facility] Stop: 12/30/16 07:29 Last Admin: 11/01/16 06:36 Dose: 0.1 mg Morphine Sulfate (Morphine) 2 mg IVP Q6H PRN PRN Reason: Pain (Severe) Stop: 12/29/16 04:44 Last Admin: 11/01/16 11:38 Dose: 2 mg Ondansetron HCl (Zofran) 4 mg IV Q6H PRN PRN Reason: Nausea / Vomiting Stop: 12/31/16 18:10 General: Alert, Oriented x3, Cooperative HEENT: Atraumatic, PERRLA, EOMI Neck: Supple Cardiovascular: Regular rate, Normal S1, Normal S2 Abdomen: Bowel sounds, Soft, Tender, Other Extremities: Other (no edema, cyanosis, clubbing.) Neurological: Normal gait, Normal speech, Strength at 5/5 X4 ext Psych/Mental Status: Mental status NL Assessment/Plan - Problem List Patient Problems: All Active Problems Abdominal pain (Active) R10.9 Abdominal discomfort, generalized (Acute) R10.84 Sudden onset of severe abdominal pain (Acute) R10.9 - Assessment Assessment: Abdominal pain recurrent no clinical evidence of inflammatory bowel disease or small bowel obstruction. Acute gastroenteritis. Hypothyroidism - Plan Plan: Advance diet as tolerated. IV antibiotic for now. Increase activity. DC planning to home. Outpatient follow-up by primary M.Coreen. for further evaluation since current workup is negative.
[2016-11-02] MEDS: D5-0.45NS 1,000 ML IV SCH ×2 (02:20→14:05)
[2016-11-02] MEDS: Levothyroxine 0.1 Mg Tab PO SCH (06:39)
--- NOTE | 2016-11-02 08:56 | Diagnostic Imaging Report ---
Small bowel follow-through procedure History: Abdominal pain rule out small bowel obstruction Comparison: CT abdomen and pelvis on 10/30/2016 Technique/procedure: Oral Gastrografin was administered and multiple fluoroscopic images were obtained. Pipe Coremaker view demonstrates generalized gas-filled loops of bowel. There is normal transit of contrast from the stomach into the small bowel. The small bowel folds are grossly within normal limits. Evaluation for focal lesions is limited on this exam. There is transit of contrast to the large bowel within 1 hour. No evidence of small bowel obstruction. IMPRESSION: No evidence of small bowel obstruction.
[2016-11-02] MEDS: Morphine Sulfate 2 mg/mL 1mL Syr IVP PRN (09:58)
[2016-11-02] MEDS ORDERED: Dicyclomine 10 mg Cap PO SCH (10:45)
[2016-11-02] MEDS ORDERED: Lactobacillus Rhamnosus 10 Billion CFU Capsule PO SCH (10:45)
--- NOTE | 2016-11-02 15:15 | Discharge Summary ---
DATE OF DISCHARGE: 11/02/2016 PRINCIPAL DIAGNOSES: 1. Intermittent abdominal pain, etiology most likely functional colonoscopy and small bowel studies are unremarkable for inflammatory bowel disease or bowel obstruction. 2. Acute gastroenteritis, resolved. 3. Diverticulosis. 4. Hypothyroidism. 5. Degenerative joint disease. 6. ALLERGIC TO CODEINE. BRIEF TREATMENT FOR THE REASON FOR ADMISSION: A 65-year-old [place] female admitted by me on 10/30/2016 when patient presented to the Emergency Room with chief complaint of acute onset of abdominal pain associated with nausea, vomiting, and diarrhea. After being evaluated by Emergency Room M.D., the patient was admitted. Please refer to my dictated H and P for further information. HOSPITAL COURSE: The patient was admitted to med/surg floor. The patient was kept n.p.o. IV fluids, IV antibiotics and symptoms management was initiated. Appropriate home medicine was reconciliated. GI consult was requested. The patient was seen by flexo operator and underwent colonoscopy as well as small bowel series. Colonoscopy was performed by Dr. Grzegorz Pabon, which did not reveal any sign of ____ colitis. The patient did have a small bowel series, which was negative for bowel obstruction. The patient still has intermittent pain. Discussion was made with patient's family that the patient's pain most likely from the functional etiology. I have advised that patient should have followup with inverted block operator as an outpatient. ____ the patient's gastroenteritis resolved and cleared by the GI, the patient is discharged home with prescription of Bentyl 10 mg p.o. q.i.d. p.r.n. and probiotic to be continued at home. If the patient has recurrent symptoms, the patient should go to the Emergency Room. JOB# [id number]
--- NOTE | 2016-11-04 01:18 | Admit Criteria Form ---
Admit Criteria Forms - Admit Criteria Diagnosis: GASTROENTEROLOGY GRG Clinical Indications for Admission to Inpatient Care ([place]/ check or initial the applicable condition/criteria) Hospital admission is needed for appropriate care of the patient because of ANY ONE of the following: [ ]I. Suspected acute intra-abdominal process indicated by 1 or more of the following(1)(2)(3)(4)(5): [ ]a) Hemodynamic instability [ ]b) Peritoneal signs present (eg, abdominal rigidity, rebound tenderness, absent bowel sounds) [ ]c) Bowel obstruction suspected (eg, persistent vomiting, abdominal distention)(6)(7)(8) [ ]d) Suspected mesenteric ischemia or ischemic colitis(9)(10)(11) [ ]e) Other signs or symptoms of acute abdominal disease (eg, severe pain, free air)(12) [ ]II. Hemoperitoneum(13)(14) [ ]III. Ascites requiring acute treatment indicated by 1 or more of the following (15)(16)(17)(18) [ ]a) Hemodynamic instability [ ]b) Peritoneal signs present (e.g., abdominal rigidity, rebound tenderness , absent bowel sounds) [ ]c) Tachypnea, Hypoxemia,or other respiratory symptoms remain after emergency or observation level care (as appropriate) [ ]d) Suspected infected ascites as indicated by 1 or more of the following( 19)(20) [ ]i) Fever [ ]ii) Vital sign abnormality [ ]iii) Abdominal pain or tenderness not relieved by paracentesis [ ]iv) Systemic signs of infection (e.g., elevated WBC count, fever) [ ]v) Ascitic fluid analysis consistent with infection ( e.g., elevated WBC count) [ ]IV. Severe liver disease indicated by 1 or more of the following (15)(16)(21) (22)(23)(24)(25)(26)(27)(28) [ ]a) Acute hepatitis (e.g., transaminaselevel greater than 1000 IU/L) [ ]b) Acute elevation of prothrombintime to more than 50% above normal or INR greater than 1.5 [ ]c) Bilirubin greater than 20 mg/dL (342 micromoles/L) [ ]d) New-onset or worseninghepatic encephalopathy [ ]e) Acute elevation of serum ammonia level (eg, greater than 210 mcg/dL ( 150 micromoles/L)) [ ]f) Acute liver necrosis [ ]g) Vomiting that is severe of persistent [ ]h) Hemodynamic instability due to liver disease [ ]i) Acute renal failure [ ]j) Hepatic abscess [ ]k) Hepatic hydrothorax(29) [ ]l) Other indications of severe liver disease (e.g., persistent fever, ingestion of hepatotoxin)(30) [ ]V. Dehydration that is severe or persistent [ ]. Severe diarrhea indicated by 1 or more of the following (31)(32)(33)(34)( 35) : [ ]a) High fever or other high-risk infection situation [ ]b) Intractable bloody diarrhea (e.g., more than 6 bloody stools per day ) [ ]c) Suspected etiology (Clostridiumdifficile-associated diarrhea) that requires isolation or care not feasible in outpatient setting (36) [ ]d) Altered mental status that is severe or persistent [ ]e) Dehydration that is severe or persistent [ ]g) Peritoneal signs present (e.g., abdominal rigidity, rebound tenderness, absent bowel sounds) [ ]h) Abdominal ischemia suspected (9)(10)(11) [ ]i) Hemodynamic instability [ ]j) Severe electrolyte abnormalities requiring inpatient care [ ]k) Acute renal failure [ ]VII. Suspected toxic nick colon(4)(9) [ ]VIII. Severe dysphagia indicated by 1 or more of the following(37)(38) [ ]a) Suspected esophageal perforation or fistula(39) [ ]b) Suspected cause that requires inpatient care (e.g., caustic ingestion, severe esophagitis) (40)(41) [ ]c) Dehydration that is severe or persistent [ ]d) Inability to manage secretions or maintain hydration [ ]e) Hemodynamic instability [ ]f) Severe electrolyte abnormalities requiring inpatient care [ ]g) Acute renal failure [ ]IX. Vomiting and 1 or more of the following (42)(43)(44)(45)(46) [ ]a) High fever or other high-risk infection situation [ ]b) Altered mental status that is severe or persistent [ ]c) Dehydration that is severe or persistent [ ]d) Peritoneal signs present (e.g., abdominal rigidity, rebound tenderness, absent bowel sounds) [ ]e) Hemodynamic instability [ ] f) Severe electrolyte abnormalities requiring inpatient care [ ] g) Acute renal failure [ ]h) Bowel obstruction suspected (e.g., severe vomiting, abdominal distension) [ ]i) Vomiting that is severe or persistent [ ]X. Gastroparesis and 1 or more of the following(46)(47)(48)(49): [ ]a) Dehydration that is severe or persistent [ ]b) Severe electrolyte abnormalities requiring inpatient care [ ]c) Acute renal failure [ ]d) Vomiting that is severe or persistent [ ]XI Obstipation and 1 or more of the following(50)(51)(52)(53) [ ]a) Complication of fecal impaction (eg, stercoral ulceration, perforation , venous compression, obstructive uropathy) [ ]b) Fecal disimpaction by digital fragmentation or mechanical disimpaction unsuccessful [ ]XII Complication of gastrostomy or jejunostomy feeding tube(54)(55)(56) [ ]a) Luminal perforation [ ]b) Gastrocolonic fistula [ ]c) Cellulitis of surrounding area with failure of outpatient treatment [ ]d) Necrotizing fasciitis [ ]e) Peritonitis [ ]f) Gastric herniation or prolapse [ ]g) Ischemic necrosis of gastric wall ("buried bumper") [ ]h) Other complication of gastrostomy or jejunostomy unable to be resolved at lower level of care [ ]XII. Complications of transplanted liver indicated by 1 or more of the following(57)(58)(59): [ ]a) Acute graft rejection requiring inpatient management (eg, intravenous immuno suppression)(60)(61) [ ]b) Failure of transplanted liver as indicated by 1 or more of the following: [ ]i. Acute hepatitis (eg, transaminase level greater than 1000 International Units per liter (IU/L)) [ ]ii. Acute elevation of prothrombin time to more than 50% above baseline or INR greater than 1.5 [ ]iii. Bilirubin greater than 20 mg/dL (342 micromoles/L) [ ]iv. New-onset or worsening hepatic encephalopathy [ ]v. Acute elevation of serum ammonia level (eg, greater than 210 mcg/dL (150 micromoles/L)) [ ]vi. Acute liver necrosis [ ]c) Infection requiring inpatient management (eg, Hemodynamic instability, need for intravenous antimicrobial treatment) (62)(63)(64)(65)(66) [ ]d) Other complication of transplanted liver (eg, thrombosis, autoimmune hepatitis, variceal bleeding) requiring inpatient management (67)(68)(69) [ ]XII. Complications of transplanted pancreas indicated by 1 or more of the following (70) [ ]a) Acute graft rejection requiring inpatient management (eg, intravenous immunosuppression)(60)(71) [ ]b) Failure of transplanted pancreas as indicated by 1 or more of the following: [ ]i. Serum amylase greater than 3 times the upper limit of normal or baseline [ ]ii. Serum lipase greater than 3 times the upper limit of normal or baseline [ ]iii. Imaging findings consistent with pancreatic inflammation or necrosis [ ]c) Infection requiring inpatient management (eg, Hemodynamic instability, need for intravenous antimicrobial treatment) (64)(65)(66) [ ]d) Other complication of transplanted pancreas (eg, graft thrombosis, pancreatic duct stricture, anastomotic leak) requiring inpatient management (72 ) [X ]XIII. Gastroenterology condition,Symptom or finding for which emergency and observation care have failed or are not considered appropriate. See General criteria: Observation care, General Admission criteria or Pediatric General Admission criteria guideline as appropriate. The original [facility] content created by [facility] has been revised. The portions of the content which have been revised are identified through the use of italic text or in bold,and [facility] has neither reviewed nor approved the modified material. All other unmodified content is copyright [facility] [employer]. Please see references footnoted in the original [facility] edition 2017 Admit Criteria Met?: Yes
--- NOTE | 2016-11-04 14:58 | Pathology Report ---
[id number] Collection Date: 10/31/2016 Surgeon: Dr. Susie Pabon Specimen Description: Biopsy of terminal ileum Gross Description: Received in formalin are five cifuentes soft tissue fragments ranging from 0.1 to 0.2 cm in greatest dimension. Totally submitted in one cassette. Microscopic Description: The histologic sections show small bowel mucosa with intact intestinal villi, showing no evidence for villous abnormalities. There is also no evidence for ulceration or atypia. Diagnosis: No significant pathologic findings, biopsy of terminal ileum. [facility]# [id number]
== END 2016-11-02 16:40 | disposition home or self-care (01) | DRG 249 ==
LOC: ER 01:52 → MSI 04:10
PROVIDERS: ADMIT Internal Medicine; ATTEND Internal Medicine
PROC: 0DBK8ZX Excision of Ascending Colon, Via Natural or Artificial Opening Endoscopic, Diagnostic (ICD-10-PCS; principal; 2016-10-31)
PROC: 0DBL8ZX Excision of Transverse Colon, Via Natural or Artificial Opening Endoscopic, Diagnostic (ICD-10-PCS; 2016-10-31)
PROC: 0DBM8ZX Excision of Descending Colon, Via Natural or Artificial Opening Endoscopic, Diagnostic (ICD-10-PCS; 2016-10-31)
DX: K52.9 Noninfective gastroenteritis and colitis, unspecified (principal); I10 Essential (primary) hypertension; K57.90 Diverticulosis of intestine, part unspecified, without perforation or abscess without bleeding; K50.90 Crohn's disease, unspecified, without complications; E03.9 Hypothyroidism, unspecified; M19.90 Unspecified osteoarthritis, unspecified site; K29.70 Gastritis, unspecified, without bleeding; E86.0 Dehydration; Z88.5 Allergy status to narcotic agent; Z82.49 Family history of ischemic heart disease and other diseases of the circulatory system; Z80.0 Family history of malignant neoplasm of digestive organs
CPT/HCPCS: 36415-UA; 71010-TC; 74250-TC; 80053-TC; 80061-TC; 80074-90; 81001-TC; 82150-TC; 82306-90; 82550-TC; 82607-90; 82746-90; 83540-90; 83550-90; 83690-TC; 83880-TC; 84443-TC; 84484-TC; 85025-TC; 85610-TC; 85652-TC; 86141-TC; 86480-90; 93005; 94760; 96374; 96375; J1885; J2270; J2405; J2543; J2704; J3490; J7030; Z7506; Z7508; Z7512; Z7610

== ENCOUNTER 2016-12-09 19:05 | Inpatient (IN) | payer MEDICAID ==
--- NOTE | 2016-12-09 19:39 | ED Physician Chart ---
ED Chief Complaint/HPI - Patient Information Date Seen:: 12/09/16 Time Seen:: 19:34 Chief Complaint:: Abdominal pain for 40 min History of Present Illness:: 66 yo female has a history of recurrent abdominal pain and small bowel obstruction. She had abdominal pain and SBO a month ago and the SBO resolved without surgery. At that time, colonoscopy was negative for IBD. Currently, 40 min prior to ER visit and about 30 min after dinner, the patient gradually developed abdominal pain. The pain became severe rapidly without vomiting. She took one tablet of gabapentin 600mg without relief. The patient was brought to ER by her . Allergies:: Allergies Allergy/AdvReac Type Severity Reaction Status Date / Time codeine Allergy Verified 10/07/15 08:23 Vitals:: Vital Signs - 8 hr 12/09/16 19:10 Temp 98.2 F HR 78 RR 19 BP 158/84 O2 Sat % 97 ED Review of Systems - Review of Systems General/Constitutional: No fever, No chills Skin: No skin lesions Head: No headache Eyes: No loss of vision ENT: No earache Neck: No neck pain Cardio Vascular: No chest pain Pulmonary: No SOB GI: Nausea, Pain G/U: No dysuria Musculoskeletal: No bone or joint pain Psychiatric: No prior psych history ED Past Medical History - Past Medical History Obtainable: Yes Past Medical History: Thyroid disorder (Hypothyroidism), Other (Diverticulitis, DJD) Family History: HTN Social History: Non Smoker, No Alcohol, No Drug Use Surgical History: other (colonoscopy) Family Medical History - Family Member Mother History Unknown: Yes Ethnicity: Living Status: Hx Family Cancer: No Hx Family Coronary Artery Disease: No Hx Family Congestive Heart Failure: No Hx Family Hypertension: No Hx Family Stroke: No Hx Family Diabetes: Yes Hx Family Seizures: No Hx Family Dementia: No Hx Family AIDS: No Hx Family HIV: No Hx Family COPD: No Hx Family Hepatitis: No Hx Family Psychiatric Problems: No Hx Family Tuberculosis: No Father History Unknown: Yes Ethnicity: Living Status: Hx Family Cancer: Yes (stomach) Hx Family Coronary Artery Disease: No Hx Family Congestive Heart Failure: No Hx Family Hypertension: No Hx Family Stroke: No Hx Family Diabetes: No Hx Family Seizures: No Hx Family Dementia: No Hx Family AIDS: No Hx Family HIV: No Hx Family COPD: No Hx Family Hepatitis: No Hx Family Psychiatric Problems: No Hx Family Tuberculosis: No Son History Unknown: Yes Ethnicity: Living Status: Still Living ED Physical Exam - Physical Examination General/Constitutional: Well-developed, well-nourished Head: Atraumatic Eyes: PERRL, EOMI Skin: Well hydrated ENMT: External ears, nose nl Neck: Nontender Respiratory: Clear to Auscultation Cardio Vascular: RRR, No murmur, gallop, rubs, NL S1 S2 Other GI comments:: Soft, epigastric and periumbilical tenderness, bowel sound normal. Extremities: Full ROM Neuro/Psych: Normal sensory exam, Normal motor strength ED Assessment - Assessment General Assessment: 66 yo female, with history of recurrent abdominal pain and SBO, developed acute abdominal pain. CT abdomen showed distal SBO. Critical Care Time: 45 Excludes all billable procedures: Yes This condition life threatening/high prob of deterioration: No Assessment/Comments:: CBC, CMP, UA Pain control PPI KUB CT abdomen non-contrast Admission for surgical consult ED Septic Shock - . Is Septic Shock (SBP<90, OR Lactate>4 mmol\L) present?: No - <6hrs of presentation: Vital Signs: Vital Signs - 8 hr 12/09/16 19:10 Temp 98.2 F HR 78 RR 19 BP 158/84 O2 Sat % 97 ED Reassessment (Disposition) - Reassessment Reassessment Condition:: Improved - Patient Disposition Discharge/Transfer:: Acute Care w/in this hosp Accepting Physician:: Dr. Araujo Admitted to:: Med/Surg ED Discharge Plan - Patient Disposition Admit/Discharge/Transfer: Acute Care w/in this hosp Condition at Disposition: Stable
[2016-12-09] MEDS ORDERED: Sodium Chloride 0.9% 1,000 ML IV ONE (19:45)
[2016-12-09] MEDS ORDERED: Morphine Sulfate 2 mg/mL 1mL Syr ONE ×2 (19:48→20:40)
[2016-12-09 20:06] LABS: % EOSINOPHILS 3.4 % (0.0-5.0); % LYMPHOCYTES 29.1 % (20.0-50.0); % NEUTROPHILS 56.5 % (40.0-80.0); HEMATOCRIT 36.2 % (41.0-60); HEMOGLOBIN 12.4 gm/dL (12-16); MEAN CELL VOLUME 86.4 fl (81-100); MEAN CORPUSCULAR HEMOGLOBIN 29.5 pg (27.0-31.0); MEAN CORPUSCULAR HGB CONC 34.1 pg (28.0-36.0); MEAN PLATELET VOLUME 8.7 fl; NEUTROPHILE ABSOLUTE 3.9 Th/cmm (1.8-8.0); RED BLOOD COUNT 4.19 Mil/cmm (3.80-5.20); RED CELL DISTRIBUTION WIDTH 14.1 % (11.5-20.0)
[2016-12-09 20:12] LABS: URINE BILIRUBIN NEGATIVE (NEGATIVE); URINE BLOOD TRACE (NEGATIVE); URINE GLUCOSE (UA) NEGATIVE (NEGATIVE); URINE KETONE NEGATIVE (NEGATIVE); URINE PROTEIN NEGATIVE (NEGATIVE); URINE UROBILINOGEN 0.2 E.U./dL (0.2 - 1.0)
[2016-12-09 20:14] LABS: PLATELET COUNT 187 Th/cmm (150-400); WHITE BLOOD COUNT 6.9 Th/cmm (4.8-10.8)
[2016-12-09 20:14] LABS: URINE COLOR STRAW
[2016-12-09 20:15] LABS: URINE BACTERIA NONE SEEN /hpf (NONE SEEN); URINE EPITHELIAL CELLS NONE SEEN /lpf (FEW); URINE WBC NONE SEEN /hpf (0-5)
[2016-12-09 20:21] LABS: ALB/GLOB RATIO 1.4 (1.0-1.8); ALKALINE PHOSPHATASE 76 U/L (34-104); ANION GAP 10.6 (7.0-16.0); BILIRUBIN,TOTAL 0.3 mg/dL (0.3-1.0); BUN - UREA NITROGEN 14 mg/dL (7-25); BUN/CREATININE RATIO 23.3; CARBON DIOXIDE 23.1 mEq/L (21.0-31.0); CHLORIDE 106 mEq/L (98-107); CREATININE - SERUM 0.6 mg/dL (0.6-1.2); GLUCOSE 109 mg/dL (70-105); POTASSIUM SERUM 3.7 mEq/L (3.5-5.1); SGOT 23 U/L (13-39); SGPT/ALT 11 U/L (7-52); SODIUM SERUM 136 mEq/L (136-145)
[2016-12-09] MEDS ORDERED: D5-0.45NS 1,000 ML IV SCH (23:00)
[2016-12-09] MEDS ORDERED: Morphine Sulfate 2 mg/mL 1mL Syr IVP PRN (23:22)
[2016-12-09 23:41] VITALS: BP 147/67
[2016-12-10] MEDS: Morphine Sulfate 2 mg/mL 1mL Syr IVP PRN ×2 (00:48→10:31)
[2016-12-10] MEDS ORDERED: Dicyclomine 10 mg Cap PO PRN (07:54)
--- NOTE | 2016-12-10 08:15 | Diagnostic Imaging Report ---
KUB single view HISTORY: Abdominal pain, history of small bowel obstruction. COMPARISON: CT abdomen and pelvis on 10/30/2016 FINDINGS: The bowel gas pattern is nonspecific. No evidence of gross free air. Nonspecific 1 cm calcification left hemipelvis is noted. Degenerative changes of the spine are noted. IMPRESSION: Nonspecific bowel gas pattern.
--- NOTE | 2016-12-10 08:33 | Diagnostic Imaging Report ---
CT abdomen and pelvis without intravenous contrast Indication: Abdominal pain, rule out obstruction Comparison: CT abdomen and pelvis on 10/30/2016, Technique: Axial images were obtained from the lung bases to the bilateral proximal femurs without IV contrast. Coronal reconstructions were made. total DLP: 401, CTDI9.2 FINDINGS: Hypoventilatory and atelectatic changes of the lung bases are noted. Assessment of the solid organs is limited due to lack of IV contrast. Multiple low-density lesions are seen within the liver as seen on prior exam the largest within the left lobe measuring 2.3 cm and most compatible with cysts. Additional low-density lesions are seen to small to characterize but also suggestive of cysts. No evidence of radiopaque gallstones. No focal splenic lesions. Limited assessment of the pancreas demonstrates no evidence of focal lesions. No focal adrenal lesions. No evidence of hydronephrosis or focal renal lesions. Distended urinary bladder is noted. Fluid-filled appendix is seen without evidence of dilatation or inflammatory change. Distended stomach is noted with food contents. Multiple fluid distended loops of small bowel are noted. Diverticulosis is noted without diverticulitis. No evidence of free fluid or free air. Mild atherosclerosis is noted. Degenerative changes of the spine are noted. There is 6 mm anterolisthesis of L5 on S1. Pars defects are seen at this level. IMPRESSION: Multiple fluid distended loops of small bowel and distended stomach. A partial small bowel obstruction cannot be excluded. Clinical correlation and follow-up is recommended. Distended urinary bladder. Mild diverticulosis without evidence of diverticulitis. Hepatic cysts. 6 mm anterolisthesis of L5 on S1 likely due to pars defects at this level.
--- NOTE | 2016-12-10 10:39 | History and Physical ---
History of Present Illness - HPI Vital Signs: Last Vital Signs Temp 98.4 F 12/10/16 08:08 Pulse 61 12/10/16 08:08 Resp 17 12/10/16 08:08 BP 114/52 12/10/16 08:08 Pulse Ox 98 12/10/16 08:08 Family Medical History - Family Member Mother History Unknown: Yes Ethnicity: Living Status: Hx Family Cancer: No Hx Family Coronary Artery Disease: No Hx Family Congestive Heart Failure: No Hx Family Hypertension: No Hx Family Stroke: No Hx Family Diabetes: Yes Hx Family Seizures: No Hx Family Dementia: No Hx Family AIDS: No Hx Family HIV: No Hx Family COPD: No Hx Family Hepatitis: No Hx Family Psychiatric Problems: No Hx Family Tuberculosis: No Father History Unknown: Yes Ethnicity: Living Status: Hx Family Cancer: Yes (stomach) Hx Family Coronary Artery Disease: No Hx Family Congestive Heart Failure: No Hx Family Hypertension: No Hx Family Stroke: No Hx Family Diabetes: No Hx Family Seizures: No Hx Family Dementia: No Hx Family AIDS: No Hx Family HIV: No Hx Family COPD: No Hx Family Hepatitis: No Hx Family Psychiatric Problems: No Hx Family Tuberculosis: No Son History Unknown: Yes Ethnicity: Living Status: Still Living - Medications Home Medications: Home Medication Medication Instructions Recorded Type Levothyroxine [Synthroid] 0.1 mg PO QDAC 04/28/13 History Methocarbamol 500 mg PO ACHS 09/26/16 History Dicyclomine [Bentyl 10 Mg Cap*] 10 mg PO QID PRN #60 cap 11/02/16 Rx L. Acidophilus/L.bulgaricus 1 each PO TID #90 11/02/16 Rx [Lactinex Chewable Tablet] Gabapentin 600 mg PO Q6HR PRN 12/09/16 History - Allergies Allergies/Adverse Reactions: Allergies Allergy/AdvReac Type Severity Reaction Status Date / Time codeine Allergy Verified 10/07/15 08:23 - Lab Results All Lab Results last 24 hours: Laboratory Last Values WBC 6.9 Th/cmm (4.8-10.8) D 12/09/16 19:48 RBC 4.19 Mil/cmm (3.80-5.20) 12/09/16 19:48 Hgb 12.4 gm/dL (12-16) 12/09/16 19:48 Hct 36.2 % (41.0-60) L 12/09/16 19:48 MCV 86.4 fl (81-100) 12/09/16 19:48 MCH 29.5 pg (27.0-31.0) 12/09/16 19:48 MCHC Differential 34.1 pg (28.0-36.0) 12/09/16 19:48 RDW 14.1 % (11.5-20.0) 12/09/16 19:48 Plt Count 187 Th/cmm (150-400) D 12/09/16 19:48 MPV 8.7 fl 12/09/16 19:48 Neutrophils % 56.5 % (40.0-80.0) 12/09/16 19:48 Lymphocytes % 29.1 % (20.0-50.0) 12/09/16 19:48 Monocytes % 10.0 % (2.0-10.0) 12/09/16 19:48 Eosinophils % 3.4 % (0.0-5.0) 12/09/16 19:48 Basophils % 1.0 % (0.0-2.0) 12/09/16 19:48 Sodium 136 mEq/L (136-145) 12/09/16 19:48 Potassium 3.7 mEq/L (3.5-5.1) 12/09/16 19:48 Chloride 106 mEq/L (98-107) 12/09/16 19:48 Carbon Dioxide 23.1 mEq/L (21.0-31.0) 12/09/16 19:48 Anion Gap 10.6 (7.0-16.0) 12/09/16 19:48 BUN 14 mg/dL (7-25) 12/09/16 19:48 Creatinine 0.6 mg/dL (0.6-1.2) 12/09/16 19:48 Est GFR ( Amer) > 60.0 ml/min (>90) 12/09/16 19:48 Est GFR (Non-Af Amer) > 60.0 ml/min 12/09/16 19:48 BUN/Creatinine Ratio 23.3 12/09/16 19:48 Glucose 109 mg/dL (70-105) H 12/09/16 19:48 Calcium 9.0 mg/dL (8.6-10.3) 12/09/16 19:48 Total Bilirubin 0.3 mg/dL (0.3-1.0) 12/09/16 19:48 AST 23 U/L (13-39) 12/09/16 19:48 ALT 11 U/L (7-52) 12/09/16 19:48 Alkaline Phosphatase 76 U/L (34-104) 12/09/16 19:48 Total Protein 7.0 gm/dL (6.0-8.3) 12/09/16 19:48 Albumin 4.1 gm/dL (3.7-5.3) 12/09/16 19:48 Globulin 2.9 gm/dL 12/09/16 19:48 Albumin/Globulin Ratio 1.4 (1.0-1.8) 12/09/16 19:48 Urine Source RANDOM 12/09/16 19:15 Urine Color STRAW 12/09/16 19:15 Urine Clarity CLEAR (CLEAR) 12/09/16 19:15 Urine pH 6.0 (4.6 - 8.0) 12/09/16 19:15 Ur Specific [place] 1.020 (1.005-1.030) 12/09/16 19:15 Urine Protein NEGATIVE mg/dL (NEGATIVE) 12/09/16 19:15 Urine Glucose (UA) NEGATIVE mg/dL (NEGATIVE) 12/09/16 19:15 Urine Ketones NEGATIVE mg/dL (NEGATIVE) 12/09/16 19:15 Urine Blood TRACE (NEGATIVE) 12/09/16 19:15 Urine Nitrate NEGATIVE (NEGATIVE) 12/09/16 19:15 Urine Bilirubin NEGATIVE (NEGATIVE) 12/09/16 19:15 Urine Urobilinogen 0.2 E.U./dL (0.2 - 1.0) 12/09/16 19:15 Ur Leukocyte Esterase NEGATIVE (NEGATIVE) 12/09/16 19:15 Urine RBC 2-5 /hpf (0-5) 12/09/16 19:15 Urine WBC NONE SEEN /hpf (0-5) 12/09/16 19:15 Ur Epithelial Cells NONE SEEN /lpf (FEW) 12/09/16 19:15 Urine Bacteria NONE SEEN /hpf (NONE SEEN) 12/09/16 19:15
[2016-12-11] MEDS ORDERED: Levothyroxine 0.1 Mg Tab PO SCH (07:30)
--- NOTE | 2016-12-12 23:22 | Discharge Summary ---
DATE OF DISCHARGE: 12/10/2016 HOSPITAL COURSE: This is a patient admitted at [facility] for abdominal pain and the patient's initial diagnosis was abdominal pain, gastritis, history of hypothyroidism, history of diverticulitis, and history of hypertension. The patient was seen by the GI doctor. The patient felt better. The patient was given pain medication and antibiotics and the patient was sent home in a stable condition on 12/10/2016. I will follow the patient in 2 days. CONDITION AT THE TIME OF DISCHARGE: Stable. [facility]# [id number]
== END 2016-12-10 14:00 | disposition home or self-care (01) | DRG 241 ==
LOC: ER 19:05 → MSI 22:40
PROVIDERS: ADMIT Internal Medicine; ATTEND Internal Medicine
DX: K29.70 Gastritis, unspecified, without bleeding (principal); E03.9 Hypothyroidism, unspecified; M19.90 Unspecified osteoarthritis, unspecified site; Z82.49 Family history of ischemic heart disease and other diseases of the circulatory system; Z83.3 Family history of diabetes mellitus; Z79.899 Other long term (current) drug therapy; Z88.5 Allergy status to narcotic agent
CPT/HCPCS: 36415-UA; 74000-TC; 80053-TC; 81001-TC; 85025-TC; 96374; 96375; 96376; C9113; J2270; J7030; Z7502

== ENCOUNTER 2017-01-11 01:48 | Emergency (ER) | payer MEDICAID ==
[2017-01-11 02:19] LABS: % BASOPHILS 0.6 % (0.0-2.0); % EOSINOPHILS 2.5 % (0.0-5.0); % LYMPHOCYTES 21.6 % (20.0-50.0); % MONOCYTES 6.5 % (2.0-10.0); % NEUTROPHILS 68.8 % (40.0-80.0); HEMOGLOBIN 13.7 gm/dL (12-16); MEAN CELL VOLUME 87.5 fl (81-100); MEAN CORPUSCULAR HGB CONC 33.1 pg (28.0-36.0); MEAN PLATELET VOLUME 8.6 fl; NEUTROPHILE ABSOLUTE 6.3 Th/cmm (1.8-8.0); PLATELET COUNT 210 Th/cmm (150-400); RED BLOOD COUNT 4.71 Mil/cmm (3.80-5.20); RED CELL DISTRIBUTION WIDTH 13.1 % (11.5-20.0)
[2017-01-11 02:23] LABS: HEMATOCRIT 41.2 % (41.0-60); WHITE BLOOD COUNT 9.2 Th/cmm (4.8-10.8)
[2017-01-11 02:34] LABS: AMYLASE SERUM 46 U/L (29-103); ANION GAP 10.6 (7.0-16.0); BUN - UREA NITROGEN 17 mg/dL (7-25); BUN/CREATININE RATIO 24.3; CALCIUM SERUM 9.6 mg/dL (8.6-10.3); CARBON DIOXIDE 24.2 mEq/L (21.0-31.0); CHLORIDE 103 mEq/L (98-107); CREATININE - SERUM 0.7 mg/dL (0.6-1.2); GLUCOSE 139 mg/dL (70-105); LIPASE 35 U/L (11-82); POTASSIUM SERUM 3.8 mEq/L (3.5-5.1); SODIUM SERUM 134 mEq/L (136-145)
--- NOTE | 2017-01-11 18:36 | ER Physician Documentation ---
DATE OF SERVICE: CODE: Full code. WEIGHT: 58.06 kilograms. HISTORY OF PRESENT ILLNESS: A 66-year-old female patient. I just saw her 2 days ago when she brought her daughter here. Her date is 1950. Her is with her. The patient complains of nausea, vomiting, and abdominal pain all over the abdomen, more in the right side of the lower abdomen, but she keeps on rotating all over the abdomen. She wants a shot and she wants to go home, and that is the only reason she came here. The pain started at 9. This is the patient who has a few times come over here, got a shot, and went home. In all probability, the patient may be a drug seeker, we will get some tests or blood checkup done including amylase and lipase done, give her Toradol IV and give her some 4 mg Zofran IV and get the labs done. If labs are normal, she goes home. I do not have any other medication to give her, except for some Tylenol for the pain. History of present illness; nothing new, other than this nausea and vomiting, I did not see evidence of any other manifestations, no other past significant medical history. The patient has done all kinds of investigations according to the including CT scan, ultrasound, MRI, etc., and all kinds of different tests and all were negative. PAST MEDICAL HISTORY: Benign and negative. FAMILY HISTORY: Negative. REVIEW OF SYSTEMS: Benign and negative. No heart disease. No liver disease. No lung disease. No pneumonia. No TB. No blood clots. No pancreatitis. No evidence of any cholecystitis, appendicitis, etc. PHYSICAL EXAMINATION: GENERAL: The patient appears to be awake, alert, oriented. She seems to be like malingering her symptoms to the best of my understanding, but I could be wrong. Let us check the labs and see what happens. We will get the labs done. Otherwise, general exam benign and negative. No meningeal signs. No edema, no cyanosis, no petechia, no ecchymosis. CHEST: Clear. NECK: Trachea being central. LUNGS: Fairly good air entry over lungs. No rales, rhonchi, or wheezing. HEART: Reveals a normal heart sound, softer heart sounds. Carotid sound is absent. CENTRAL NERVOUS SYSTEM: Within normal limits, except that I think that she is shaking her pain to the best of my understanding, but I could be wrong as I mentioned earlier. If there was any acute appendix the patient may have suffered in the past, then she would not get better in one shot and gone home. Today also the first thing they have said is they want a shot, so I will give 30 mg Toradol shot and give 4 mg Zofran. Get CBC, amylase, lipase done. If they are all normal, then the patient will be sent home and nothing else needs to be done. This was explained to the nurse. JOB# [id number]
== END 2017-01-11 02:45 | disposition home or self-care (01) ==
LOC: ER 01:48
DX: R11.2 Nausea with vomiting, unspecified (principal); R10.31 Right lower quadrant pain
CPT/HCPCS: 99284; 96374; 96375; 36415; 85025; 82150; 83690; 80048; J1885; J2405; Z7502

== ENCOUNTER 2017-01-22 23:28 | Emergency (ER) | payer MEDICAID ==
[2017-01-23] MEDS ORDERED: HYDROmorphone 1 mg/mL 1mL Syr IM STA
--- NOTE | 2017-01-23 | ED Physician Chart ---
ED Chief Complaint/HPI - Patient Information Date Seen:: 01/22/17 Time Seen:: 23:50 Chief Complaint:: abdominal pain History of Present Illness:: Patient had onset 1 hour ago of mid and upper abdominal pain. She had no vomiting or diarrhea. No dysuria. No chills or fever. Allergies:: Allergies Allergy/AdvReac Type Severity Reaction Status Date / Time codeine Allergy Verified 01/22/17 23:42 Vitals:: Vital Signs - 8 hr 01/22/17 23:30 Temp 98.0 F HR 78 RR 20 BP 147/95 O2 Sat % 98 Historian:: Patient, Family Member Review:: Nurse's Note Reviewed ED Review of Systems - Review of Systems General/Constitutional: No fever, No chills Skin: No skin lesions Head: No headache Eyes: No loss of vision ENT: No earache Neck: No neck pain Cardio Vascular: No chest pain Pulmonary: No SOB GI: No nausea, No vomiting, Pain G/U: No dysuria Musculoskeletal: No bone or joint pain Endocrine: No polyuria, No polydipsia Psychiatric: No prior psych history Hematopoietic: No bruising Allergic/Immuno: No urticaria Neurological: No syncope ED Past Medical History - Past Medical History Past Medical History: Thyroid disorder, Other (hypothyroidism; prior episodes of abdominal pain) Family History: None Social History: Non Smoker, No Alcohol Surgical History: None Psychiatricy History: None Family Medical History - Family Member Mother History Unknown: Yes Ethnicity: Living Status: Hx Family Cancer: No Hx Family Coronary Artery Disease: No Hx Family Congestive Heart Failure: No Hx Family Hypertension: No Hx Family Stroke: No Hx Family Diabetes: Yes Hx Family Seizures: No Hx Family Dementia: No Hx Family AIDS: No Hx Family HIV: No Hx Family COPD: No Hx Family Hepatitis: No Hx Family Psychiatric Problems: No Hx Family Tuberculosis: No Father History Unknown: Yes Ethnicity: Living Status: Hx Family Cancer: Yes (stomach) Hx Family Coronary Artery Disease: No Hx Family Congestive Heart Failure: No Hx Family Hypertension: No Hx Family Stroke: No Hx Family Diabetes: No Hx Family Seizures: No Hx Family Dementia: No Hx Family AIDS: No Hx Family HIV: No Hx Family COPD: No Hx Family Hepatitis: No Hx Family Psychiatric Problems: No Hx Family Tuberculosis: No Son History Unknown: Yes Ethnicity: Living Status: Still Living ED Physical Exam - Physical Examination General/Constitutional: Well-developed, well-nourished, Alert Other Gen/Cons comments:: Mild distress Head: Atraumatic Eyes: Lids, conjuctiva normal, PERRL Skin: Nl inspection, No rash ENMT: External ears, nose nl, Oropharynx nl Neck: No nuchal rigidity Respiratory: Nl effort/Exclusion, Clear to Auscultation Cardio Vascular: RRR GI: No organomegaly, No hernia, Normal BS's, Nondistended, No mass/bruits, No McBurney tenderness Other GI comments:: Upper and mid abdominal tenderness Extremities: No tenderness or effusion, Full ROM Neuro/Psych: No focal deficits Misc: Normal back ED Labs/Radiology/EKG Results - Lab Results Results: Laboratory Results - last 24 hr 01/22/17 01/22/17 01/22/17 23:55 23:59 23:59 WBC 7.6 RBC 4.03 Hgb 11.8 L Hct 35.3 L D MCV 87.6 MCH 29.3 MCHC Differential 33.4 RDW 13.3 Plt Count 170 MPV 8.8 Neutrophils % 64.5 Lymphocytes % 20.7 Monocytes % 10.1 H Eosinophils % 3.6 Basophils % 1.1 Sodium 136 Potassium 3.8 Chloride 104 Carbon Dioxide 24.7 Anion Gap 11.1 BUN 24 Creatinine 0.8 Est GFR ( Amer) > 60.0 Est GFR (Non-Af Amer) > 60.0 BUN/Creatinine Ratio 30.0 Glucose 119 H Calcium 9.2 Lipase 33 Urine Source MIDSTREAM Urine Color YELLOW Urine Clarity CLEAR Urine pH 6.0 Ur Specific [place] 1.025 Urine Protein TRACE Urine Glucose (UA) NEGATIVE Urine Ketones TRACE Urine Blood TRACE Urine Nitrate NEGATIVE Urine Bilirubin NEGATIVE Urine Urobilinogen 0.2 Ur Leukocyte Esterase NEGATIVE Urine RBC 2-5 Urine WBC NONE SEEN Ur Epithelial Cells NONE SEEN Urine Bacteria NONE SEEN ED Assessment - Assessment General Assessment: At 0050 patient's pain is much improved. ED Septic Shock - . Is Septic Shock (SBP<90, OR Lactate>4 mmol\L) present?: No - <6hrs of presentation: Vital Signs: Vital Signs - 8 hr 01/22/17 23:30 Temp 98.0 F HR 78 RR 20 BP 147/95 O2 Sat % 98 ED Reassessment (Disposition) - Reassessment Reassessment Condition:: Improved - Diagnosis Diagnosis:: Gastritis - Aftercare/Follow up Instructions Aftercare/Follow-Up Instructions:: Refer to Discharge Instructions - Patient Disposition Discharge/Transfer:: Home Condition at Disposition:: Stable, Improved
[2017-01-23] MEDS ORDERED: HYDROmorphone 1 mg/mL 1mL Syr ONE (00:04)
[2017-01-23 00:17] LABS: % BASOPHILS 1.1 % (0.0-2.0); % EOSINOPHILS 3.6 % (0.0-5.0); % LYMPHOCYTES 20.7 % (20.0-50.0); % MONOCYTES 10.1 % (2.0-10.0); % NEUTROPHILS 64.5 % (40.0-80.0); HEMOGLOBIN 11.8 gm/dL (12-16); MEAN CELL VOLUME 87.6 fl (81-100); MEAN CORPUSCULAR HEMOGLOBIN 29.3 pg (27.0-31.0); MEAN CORPUSCULAR HGB CONC 33.4 pg (28.0-36.0); MEAN PLATELET VOLUME 8.8 fl; NEUTROPHILE ABSOLUTE 4.8 Th/cmm (1.8-8.0); PLATELET COUNT 170 Th/cmm (150-400); RED BLOOD COUNT 4.03 Mil/cmm (3.80-5.20); RED CELL DISTRIBUTION WIDTH 13.3 % (11.5-20.0); WHITE BLOOD COUNT 7.6 Th/cmm (4.8-10.8)
[2017-01-23 00:23] LABS: HEMATOCRIT 35.3 % (41.0-60)
[2017-01-23 00:28] LABS: URINE BILIRUBIN NEGATIVE (NEGATIVE); URINE BLOOD TRACE (NEGATIVE); URINE GLUCOSE (UA) NEGATIVE (NEGATIVE); URINE KETONE TRACE mg/dL (NEGATIVE); URINE PROTEIN TRACE mg/dL (NEGATIVE); URINE UROBILINOGEN 0.2 E.U./dL (0.2 - 1.0)
[2017-01-23 00:29] LABS: URINE COLOR YELLOW
[2017-01-23 00:30] LABS: ANION GAP 11.1 (7.0-16.0); BUN - UREA NITROGEN 24 mg/dL (7-25); CALCIUM SERUM 9.2 mg/dL (8.6-10.3); CARBON DIOXIDE 24.7 mEq/L (21.0-31.0); CHLORIDE 104 mEq/L (98-107); CREATININE - SERUM 0.8 mg/dL (0.6-1.2); GLUCOSE 119 mg/dL (70-105); LIPASE 33 U/L (11-82); POTASSIUM SERUM 3.8 mEq/L (3.5-5.1); SODIUM SERUM 136 mEq/L (136-145)
[2017-01-23 00:31] LABS: URINE BACTERIA NONE SEEN /hpf (NONE SEEN); URINE EPITHELIAL CELLS NONE SEEN /lpf (FEW); URINE WBC NONE SEEN /hpf (0-5)
== END 2017-01-23 01:08 | disposition home or self-care (01) ==
LOC: ER 23:28
DX: K29.70 Gastritis, unspecified, without bleeding (principal); E03.9 Hypothyroidism, unspecified
CPT/HCPCS: 99284; 96372; 36415; 85025; 81001; 83690; 80048; Q0162; J1170; Z7502